=== PATIENT | female | born 1950 | race Caucasian/White ===

== ENCOUNTER 2016-08-16 08:46 | Inpatient (IN) | payer OTHER ==
--- NOTE | 2016-08-15 20:52 | HP ---
HISTORY AND PHYSICAL: DATE OF OFFICE VISIT: 08/15/16 DATE OF ADMISSION/SURGERY: 08/16/16 SURGEON: Sharlene Aceves MD PROCEDURE: Right total hip arthroplasty. CHIEF COMPLAINT: Right hip pain. HISTORY OF PRESENT ILLNESS: Ms. Carvalho is a 65-year-old female with complaints of right hip pain. She has failed conservative management and has elected to proceed with a right total hip arthroplasty, which is scheduled for 08/16/[address] Aceves. PAST MEDICAL HISTORY: 1. Hypertension. 2. Hypothyroidism. 3. Acid reflux. 4. High cholesterol. PAST SURGICAL HISTORY: 1. Left knee arthroplasty. 2. Left femur fracture surgery. 3. ORIF of the left ankle. 4. Cataract removal. 5. Ganglion cyst excision from the left wrist. 6. Jaw surgery. 7. Tubal ligation. 8. D and C. CURRENT MEDICATIONS: 1. [place]. 2. Omeprazole. 3. Lisinopril/hydrochlorothiazide. 4. Levothyroxine. 5. Multivitamin. 6. Potassium. 7. Bioflex. 8. Oxycodone. ALLERGIES: To AMOXICILLIN and ZITHROMAX. FAMILY HISTORY: Hypertension, thyroid disease, and heart disease. SOCIAL HISTORY: She is a 65-year-old female who lives with her . She does not smoke or use drugs. She is retired. She uses occasional alcohol. REVIEW OF SYSTEMS: A complete 14-point review of systems was reviewed with the patient. All was negative or noncontributory. She denies any anesthesia problems, history of a DVT, pulmonary embolism, hepatitis C, or HIV. PHYSICAL EXAMINATION GENERAL: She is well developed, well nourished, in no acute distress. VITAL SIGNS: She stands 5 feet 2 inches tall, weight 250 pounds, her blood pressure 141/78, and her heart rate is 74. HEENT: She is normocephalic, atraumatic. NECK: Supple. No palpable lymph nodes. Trachea is midline. PULMONARY: The lungs are clear to auscultation bilaterally. No wheezes, rhonchi, or rales. CARDIAC: Regular rate and rhythm. Strong S1, S2. No murmurs, gallops, or rubs. No peripheral edema. ABDOMEN: Soft, nontender, and nondistended. NEUROLOGICAL: She is alert and oriented x3. Cranial nerves II through XII are intact. MUSCULOSKELETAL: Right lower extremity: She walks with a slightly antalgic- type gait, favoring her right leg. Skin is intact. She has limited range of motion with internal and external rotation of her right hip. Her lower extremity muscle group strengths are intact at 5/5. She has 2+ dorsalis pedis pulses and intact sensation. ASSESSMENT AND PLAN: Ms. Carvalho is a 65-year-old female with complaints of right hip pain. She has elected to proceed with a right total hip arthroplasty , which is scheduled for 08/16/16. Coumadin, Colace, and Percocet were all sent to her pharmacy for DVT prophylaxis and pain control. Dr. Aceves discussed the risks and benefits of the surgery at today's visit and all of her questions were answered. Dr. Aceves would like to see her back in her clinic in 10 to 14 days after the surgery. MAL NEGRETE [id number]/[facility] #: [id number] MTDTanvi
[~2016-08-16 08:46] MED LIST: Buffered Lidocaine 1% SYR 3ML* 3 ML/SYR SYRINGE INTRADERM ONE; Famotidine IV* 10 MG/ML 2 ML (20 mg) IV ONE
[2016-08-16] MEDS ORDERED: Famotidine IV* 10 MG/ML 2 ML (20 mg) ONE (09:28)
[2016-08-16] MEDS ORDERED: Clindamycin 900 MG IVPREMIX(* 900 MG/50 ML SDV IV ONE (09:28)
[2016-08-16] MEDS ORDERED: Lidocaine 2% PF * 5 ML VIAL ONE (10:58)
[2016-08-16] MEDS ORDERED: Midazolam* 1 MG/ML 5 ML VIAL (5 MG) ONE (10:58)
[2016-08-16] MEDS ORDERED: Propofol* 10 MG/ML 20 ML BTL IV PUSH ONE (10:58)
[2016-08-16] MEDS ORDERED: Ketorolac INJ* 30 MG/ML 1 ML VIAL ONE (10:58)
[2016-08-16] MEDS ORDERED: fentaNYL* 50 MCG/ML 5 ML VIAL (250 MCG VIAL) ONE (10:58)
[2016-08-16] MEDS ORDERED: Cisatracurium* 2 MG/ML MDV 10 ML ONE (10:58)
[2016-08-16] MEDS ORDERED: Ondansetron INJ* 2 MG/ML VIAL ONE (10:58)
[2016-08-16] MEDS ORDERED: Dexamethasone IV* 4 MG/ML 1 ML (4 MG) ONE (10:58)
[2016-08-16] MEDS ORDERED: KETAMINE HCL* 50 MG/ML 10 ML VIAL ONE (10:58)
[2016-08-16] MEDS ORDERED: EPHEDrine (Pressors)* 50 MG/ML VIAL ONE (12:55)
[2016-08-16] MEDS ORDERED: HYDROmorphone INJ* 1 MG/ML CARPUJECT SYRINGE IV PRN (13:01)
[2016-08-16] MEDS ORDERED: Ondansetron INJ* 2 MG/ML VIAL IV PRN ×2 (13:01→14:10)
[2016-08-16] MEDS ORDERED: fentaNYL* 50 MCG/ML 2 ML VIAL (100 MCG VIAL) ONE ×3 (13:21→15:10)
[2016-08-16] MEDS ORDERED: Phenylephrine INJ* 10 MG/ML 1 ML VIAL (10 MG) ONE (13:46)
[2016-08-16] MEDS ORDERED: oxyCODONE/Acetamin 5/325 MG* TAB PO PRN (14:10)
[2016-08-16] MEDS ORDERED: diPHENhydraMINE IV* 50 MG/ML 1 ml VIAL (BENADRYL) IV PRN (14:10)
[2016-08-16] MEDS ORDERED: Bisacodyl SUPP* 10 MG SUPP PR PRN (14:10)
[2016-08-16] MEDS ORDERED: Ondansetron TAB* 4 MG PO PRN (14:10)
[2016-08-16] MEDS ORDERED: Polyethylene Glycol 3350* 17 GM PACKET PO PRN (14:10)
[2016-08-16] MEDS ORDERED: Acetaminophen TAB* 325 MG PO PRN (14:10)
[2016-08-16] MEDS ORDERED: Bupivacaine 0.5% SDV PF* 30 ML VIAL ONE (14:12)
[2016-08-16] MEDS ORDERED: HYDROmorphone INJ* 1 MG/ML CARPUJECT SYRINGE ONE ×2 (14:26→15:10)
[2016-08-16] MEDS: fentaNYL* 50 MCG/ML 2 ML VIAL (100 MCG VIAL) IV PRN ×2 (15:12→15:19)
[2016-08-16] MEDS ORDERED: Acetaminophen IV 1GM/100ML * 100 ML ONE (15:44)
--- NOTE | 2016-08-16 15:47 | RAD ---
HISTORY: Right hip replacement COMPARISONS: August 16, 2016 VIEWS: 1, frontal view of the pelvis at 1:50 PM FINDINGS: BONE DENSITY: Normal. BONES: The patient is right hip arthroplasty. There is a temporary femoral size and prominent JOINTS: There is no arthropathy. ALIGNMENT: There is no dislocation. SOFT TISSUES: Unremarkable. OTHER FINDINGS: None. IMPRESSION: LIMITED SINGLE VIEW OF THE PELVIS DURING HIP ARTHROPLASTY
--- NOTE | 2016-08-16 15:48 | RAD ---
HISTORY: Status post right total hip arthroplasty COMPARISONS: August 16, 2016 VIEWS: 1, frontal view the pelvis FINDINGS: BONE DENSITY: Normal. BONES: The patient is status post right hip arthroplasty . There is presumably remote posttraumatic change left femur JOINTS: The patient is status post right hip arthroplasty ALIGNMENT: There is no dislocation. SOFT TISSUES: Unremarkable. OTHER FINDINGS: None. IMPRESSION: STATUS POST RIGHT HIP ARTHROPLASTY
--- NOTE | 2016-08-16 15:48 | RAD ---
HISTORY: Status post right hip arthroplasty COMPARISONS: June 27, 2016 VIEWS: 2, frontal and crosstable lateral views of the right hip FINDINGS: BONE DENSITY: Normal. BONES: The patient is status post right hip arthroplasty. There is no hardware failure or osteolysis. JOINTS: The patient is status post right hip arthroplasty ALIGNMENT: There is no dislocation. SOFT TISSUES: Unremarkable. OTHER FINDINGS: None. IMPRESSION: STATUS POST RIGHT HIP ARTHROPLASTY
[2016-08-16] MEDS ORDERED: Warfarin TAB(*) 6 MG PO ONE (18:00)
[2016-08-16] MEDS ORDERED: Clindamycin 600 MG IVPREMIX(* 600 MG/50 ML SDV IV SCH (18:00)
[2016-08-16] MEDS: Atorvastatin* 10 MG TAB PO SCH (18:01)
[2016-08-16] MEDS: oxyCODONE/Acetamin 5/325 MG* TAB PO PRN (20:33)
[2016-08-16] MEDS: Magnesium Hydroxide LIQ* 30 ML UDC PO SCH (21:01)
[2016-08-16] MEDS: Clindamycin 600 MG IVPREMIX(* 600 MG/50 ML SDV IV SCH (21:01)
[2016-08-16] MEDS: POTASSIUM GLUCONATE 595 MG PO SCH (21:01)
[2016-08-16] MEDS: Docusate CAP* 100 MG PO SCH (21:01)
[2016-08-17] MEDS: oxyCODONE/Acetamin 5/325 MG* TAB PO PRN ×5 (00:28→19:59)
[2016-08-17] MEDS: Morphine INJ* 4 MG/ML 1 ML CARPUJECT IV PRN ×2 (03:28→21:24)
[2016-08-17] MEDS: Clindamycin 600 MG IVPREMIX(* 600 MG/50 ML SDV IV SCH ×2 (03:29→11:22)
[2016-08-17] MEDS: Levothyroxine TAB* 125 MCG TAB PO SCH (06:15)
[2016-08-17 07:05] LABS: Hematocrit 27 % (35-47); Hemoglobin 9.2 g/dl (12.0-16.0)
[2016-08-17 07:29] LABS: BUN/Creatinine Ratio 17.3 (8-20); Calcium 8.4 mg/dL (8.6-10.3); EGFR African American 91.6 (>60); EGFR Non-African American 71.2 (>60); Potassium 4.2 mmol/L (3.5-5.0)
[2016-08-17] MEDS: POTASSIUM GLUCONATE 595 MG PO SCH ×2 (07:56→20:23)
[2016-08-17] MEDS: Lisinopril TAB* 10 MG PO SCH (08:00)
[2016-08-17] MEDS: Vitamin THERAPEUTIC TAB PO SCH (08:00)
[2016-08-17] MEDS: Hydrochlorothiazide TAB* 25 MG PO SCH (08:00)
[2016-08-17] MEDS: Venlafaxine EXT RELEASE CAP* 75 MG PO SCH (08:00)
[2016-08-17] MEDS: Omeprazole CAP* 20 MG PO SCH (08:00)
[2016-08-17] MEDS: Magnesium Hydroxide LIQ* 30 ML UDC PO SCH ×2 (08:00→20:25)
[2016-08-17] MEDS: Docusate CAP* 100 MG PO SCH ×2 (08:00→20:25)
[2016-08-17] MEDS ORDERED: Lisinopril/HCTZ 20/25(NF) TAB PO SCH (09:00)
--- NOTE | 2016-08-17 09:01 | OP ---
DATE OF OPERATION: 08/16/16 - ROOM #350 DATE OF : 52 SURGEON: Sharlene Aceves MD GUARD ENTRANCE REGISTRAR: MAL Yung ANESTHESIOLOGIST: Dr. Dwyer. ANESTHESIA: General. PRE-OP DIAGNOSIS: Severe end-stage degenerative osteoarthritis of the right hip joint. POST-OP DIAGNOSIS: Severe end-stage degenerative osteoarthritis of the right hip joint. OPERATIVE PROCEDURE: Right total hip arthroplasty. Please add a modifier for morbid obesity, adding at least 45 to 60 minutes onto the case. HARDWARE USED: This is uncemented [place] total hip hardware. For the acetabulum, a size 50D Tritanium cluster hole shell. A 32D 0-degree polyethylene insert Trident X3 was used. For the femur, an Accolade TMZF size 1 with a 127-degree neck. For the head a Biolox delta ceramic V40 femoral head 32 +0. COMPLICATIONS: None. ESTIMATED BLOOD LOSS: 350 cc. SPECIMENS: Femoral head and acetabular reaming sent to pathology. BRIEF HISTORY/INDICATIONS: Ms. Carvalho is a 65-year-old female with severe end- stage arthritis of the right hip joint. She failed conservative treatment with antiinflammatories, pain medication, activity modification, and physical therapy. She elected to undergo a right total hip arthroplasty. Radiographs showed severe [id number] arthritis. Informed consent was obtained from the patient. She understood the risks of the procedure included but were not limited to bleeding, infection, damage to nearby structures, continued pain, need for further surgery, intraoperative fracture, nerve palsy, hardware failure or loosening, leg length discrepancy, dislocation, stroke, heart attack , blood clot and . She wished to proceed. INTRAOPERATIVE FINDINGS: Intraoperatively, there was at least 10 cm subcutaneous fat layer. The patient's morbid obesity and body habitus added at least 45 to 60 minutes to the case. Retraction and presentation throughout the case was made more difficult. The patient was noted to have significant osteophyte formation along the anterior acetabulum and femoral head/neck junction. She had complete loss of cartilage along the femoral head and acetabulum. DESCRIPTION OF PROCEDURE: Ms. Carvalho was identified in the preanesthesia unit. Her right lower extremity was marked as the correct operative site. Informed consent was signed and placed in the chart. The patient was taken to the operating room and placed under general anesthesia. A Faye catheter was placed. The patient was placed in the left lateral decubitus position on the peg board. All bony prominences were well padded. Right lower extremity was prepped and draped in the usual sterile fashion. Preop time-out was made to correctly identify the patient side and site. Appropriate perioperative antibiotics were given within 1 hour of incision. A 15-cm posterior hip incision was made with a 10 blade. Electrocautery was used to dissect down through the subcutaneous fat layer to the lateral fascia layer. There was 10 cm or more of subcutaneous fat due to the patient's morbid obesity. A new 10 blade was used to incise the fascia layer in line with the skin incision. Charnley retractor was placed, and the posterior aspect of the hip joint was visualized. Piriformis and conjoint tendons were identified. These were elevated off the posterolateral femur using electrocautery and tagged with two #5 Ethibonds. Next, electrocautery was used to make a standard posterolateral capsular flap. This was also tagged with two #5 Ethibonds. The hip was carefully dislocated. Even dislocation of the hip was made more difficult by the body habitus. Lesser trochanter to the center of the femoral head measured at approximately 48 mm. Oscillating saw was used to make the appropriate femoral neck cut. The femoral head was sent to pathology and the femur was retracted anteriorly. After appropriate placement of retractors, the acetabulum was visualized. Preparation of the acetabulum for reaming was made more difficult by the patient 's body habitus. Long-handled knife was used to sharply remove the remaining labrum around the acetabular rim. The acetabulum was sequentially reamed up to a size 49. There was a good bleeding bone bed. The 49 trial had good fit, abduction angle and anteversion. A Tritanium cluster hole shell 50D was chosen. This was impacted into the acetabulum without difficulty. There was excellent stability. A 32D 0-degree Polyethylene insert Trident X3 liner was chosen. This was impacted into the acetabulum without difficulty. Stability of the liner was checked and rechecked, and noted to be stable. Next, attention was turned to preparation of the proximal femur. Placement of retractors was made more difficult by the patient's body habitus. Box cut osteotome and canal finder were used to enter the proximal femur. The proximal femur was sequentially broached up to a size #1. A 127 neck trial was chosen as well as a 32 +0 head trial. The hip was taken through range of motion and noted to be stable in all positions. There was good soft tissue tension and leg length. Lesser troch to center of the femoral head measured approximately 48 mm. All trials were carefully removed. Final implant was an Accolade TMZF size #1 with a 127 degree neck. This was impacted into the femoral canal without difficulty. A 32 +0 ceramic Biolox delta V40 femoral head was chosen as the final implant. This was impacted onto the femoral neck without difficulty. The hip was reduced and taken through a range of motion. There was good soft tissue tension and appropriate leg length. The hip was stable in all positions. The hip was copiously irrigated with sterile saline. Previously tagged capsule and tendons were reapproximated to the posterolateral femur through two trochanteric drill holes. Hip was once again copiously irrigated. The lateral fascia layer was closed using interrupted #1 Vicryls. The rest of the incision was closed in a layered fashion using 0 and 2-0 Vicryls. The skin was closed using running 3-0 Monocryl suture and Dermabond. Sterile 4x4's, Adaptic, and paper tape were placed over this. The patient's anesthesia was reversed without difficulty. She was taken to the PACU in stable condition. Intended weightbearing will be weightbearing as tolerated. Intended DVT prophylaxis will be Coumadin with a Lovenox bridge. [id number]/[facility] #: [id number] MTDD
--- NOTE | 2016-08-17 12:34 | PN ---
Progress Note - Progress Note SOAP: Subjective: [65 y/o female s/o RIGHT ALEX 08/16/2016. Patient reports pain under control, ambulatory this AM. Concerned about D/C home vs placement. ] Objective: [General- Well appearing, NAD, sitting in chair comfortably MSK- Incision intact, no drainage noted, minimal swelling R thigh. + dorsi/ plantarflexion b/l LE's, neg homans sign b/l. Vital Signs Temp 98.0 F 08/17/16 11:50 Pulse 91 08/17/16 11:50 Resp 16 08/17/16 11:50 BP 122/42 08/17/16 11:50 Pulse Ox 98 08/17/16 11:50 Intake & Output 08/16/16 08/17/16 08/17/16 18:59 06:59 18:59 Intake Total 3710 1640 440 Output Total 350 1475 1800 Balance 3360 165 -1360 Weight 241 lb Intake: IV Fluids 3000 990 LR 3000 990 IVPB 50 Clindamycin 50 Oral 710 600 440 Output: Faye 100 1475 1800 Estimated Blood Loss 250 Laboratory Results - last 24 hr 08/17/16 08/17/16 08/17/16 06:36 06:36 06:36 Hgb 9.2 L Hct 27 L INR (Anticoag Therapy) 0.98 Sodium Potassium Chloride Carbon Dioxide Anion Gap BUN Creatinine Est GFR ( Amer) Est GFR (Non-Af Amer) BUN/Creatinine Ratio Glucose Calcium Hepatitis C Antibody Nonreactive 08/17/16 06:36 Hgb Hct INR (Anticoag Therapy) Sodium 129 L Potassium 4.2 Chloride 97 L Carbon Dioxide 27 Anion Gap 5 BUN 14 Creatinine 0.81 Est GFR ( Amer) 91.6 Est GFR (Non-Af Amer) 71.2 BUN/Creatinine Ratio 17.3 Glucose 138 H Calcium 8.4 L Hepatitis C Antibody ] Assessment: [65 y/o female s/o RIGHT ALEX 08/16/2016.] Plan: [- DVT prophy- continue lovenox, coumadin dosing 6mg tonight - Continue PT/ OT - Continue pain regimen ] Active Medications Generic Name Dose Route Start Last Admin Trade Name Freq PRN Reason Stop Dose Admin Acetaminophen 650 mg 08/16/16 14:10 Tylenol Tab* PO Q4H PRN pain, fever Atorvastatin Calcium 10 mg 08/16/16 18:00 08/16/16 18:01 Lipitor* PO 10 mg QPM JUAN Administration Bisacodyl 10 mg 08/16/16 14:10 Dulcolax Supp* OK DAILY PRN constipation Diphenhydramine HCl 12.5 mg 08/16/16 14:10 Benadryl Iv* IV Q6H PRN PRURITIS Docusate Sodium 100 mg 08/16/16 21:00 08/17/16 08:00 Colace Cap* PO 100 mg BID JUAN Administration Enoxaparin Sodium 40 mg 08/17/16 15:00 Lovenox(*) SUBCUT Q24H JUAN Hydrochlorothiazide 50 mg 08/17/16 09:00 08/17/16 08:00 Hydrodiuril Tab* PO 50 mg DAILY JUAN Administration Lactated Ringer's 1,000 mls @ 100 mls/hr 08/16/16 15:00 08/17/16 03:23 Lactated Ringers 1000 Ml Bag* IV 100 mls/hr PER RATE JUAN Administration Lactulose 30 ml 08/16/16 14:10 Lactulose* PO Q6H PRN constipation Levothyroxine Sodium 125 mcg 08/17/16 06:00 08/17/16 06:15 Synthroid Tab* PO 125 mcg DAILY@0600 JUAN Administration Lisinopril 40 mg 08/17/16 09:00 08/17/16 08:00 Prinivil Tab* PO 40 mg DAILY JUAN Administration Magnesium Hydroxide 30 ml 08/16/16 21:00 08/17/16 08:00 Milk Of Magnesia Liq* PO 30 ml BID JUAN Administration Morphine Sulfate 4 mg 08/16/16 14:10 08/17/16 03:28 Morphine Inj (Syringe)* IV 4 mg Q2H PRN Administration breakthrough pain Multivitamins 1 tab 08/17/16 09:00 08/17/16 08:00 Theragran Tab* PO 1 tab DAILY JUAN Administration Potassium Gluconate 595 mg 08/16/16 21:00 08/17/16 07:56 [Potassium Gluconate PO Not Given Er] 595 Mg BID JUAN Omeprazole 40 mg 08/17/16 07:30 08/17/16 08:00 Prilosec Cap* PO 40 mg DAILY@0730 JUAN Administration Ondansetron HCl 4 mg 08/16/16 14:10 Zofran Inj* IV Q6H PRN nausea Ondansetron HCl 4 mg 08/16/16 14:10 Zofran Tab* PO Q6H PRN NAUSEA Oxycodone/Acetaminophen 1 tab 08/16/16 14:10 Percocet 5/325 Tab* PO Q4H PRN mild pain Oxycodone/Acetaminophen 2 tab 08/16/16 14:10 08/17/16 10:40 Percocet 5/325 Tab* PO 2 tab Q4H PRN Administration moderate pain Pharmacy Profile Note 1 note 08/17/16 17:00 Coumadin Daily Reminder* FOLLOW UP 1700 [facility] Polyethylene Glycol/Electrolytes 17 gm 08/16/16 14:10 Miralax* PO DAILY PRN Constipation Venlafaxine HCl 150 mg 08/17/16 09:00 08/17/16 08:00 Effexor Xr Cap* PO 150 mg QAM JUAN Administration Warfarin Sodium 6 mg 08/17/16 17:00 Coumadin Tab(*) PO 08/17/16 17:01 ONCE@1700 [facility] Protocol
[2016-08-17] MEDS: Enoxaparin(*) 40 MG/0.4 ML SYR SUBCUT SCH (14:58)
[2016-08-17] MEDS ORDERED: Warfarin TAB(*) 6 MG PO SCH (17:00)
[2016-08-17] MEDS: Atorvastatin* 10 MG TAB PO SCH (18:06)
[2016-08-18] MEDS: oxyCODONE/Acetamin 5/325 MG* TAB PO PRN ×5 (00:20→21:19)
[2016-08-18] MEDS: Levothyroxine TAB* 125 MCG TAB PO SCH (05:58)
[2016-08-18 07:33] LABS: Hematocrit 28 % (35-47); Hemoglobin 9.3 g/dl (12.0-16.0)
[2016-08-18] MEDS: Venlafaxine EXT RELEASE CAP* 75 MG PO SCH (08:03)
[2016-08-18] MEDS: Magnesium Hydroxide LIQ* 30 ML UDC PO SCH ×2 (08:03→21:19)
[2016-08-18] MEDS: Docusate CAP* 100 MG PO SCH ×2 (08:04→21:19)
[2016-08-18] MEDS: Lisinopril TAB* 10 MG PO SCH (08:04)
[2016-08-18] MEDS: Hydrochlorothiazide TAB* 25 MG PO SCH (08:04)
[2016-08-18] MEDS: Omeprazole CAP* 20 MG PO SCH (08:04)
[2016-08-18] MEDS: Vitamin THERAPEUTIC TAB PO SCH (08:04)
[2016-08-18] MEDS: POTASSIUM GLUCONATE 595 MG PO SCH ×2 (08:05→21:22)
--- NOTE | 2016-08-18 10:20 | PN ---
Progress Note - Progress Note SOAP: Subjective: Pt. reports she is doing well, pain is controlled. Objective: RLE - dressing changed, inc c/d/i. distally nvi. Vital Signs: Temp Pulse Resp BP Pulse Ox 98.2 F 93 18 114/54 92 08/18/16 03:22 08/18/16 03:22 08/18/16 10:04 08/18/16 03:22 08/18/16 08:00 Laboratory Results - last 24 hr 08/17/16 08/18/16 08/18/16 06:36 07:01 07:01 Hgb 9.3 L Hct 28 L INR (Anticoag Therapy) 1.14 H Hepatitis C Antibody Nonreactive Assessment: 65 yo F pod 2 s/p RTHA Plan: wbat with post hip precautions 8 mg coumadin tonight with lovenox bridge plan d/c to home in am
[2016-08-18] MEDS: Enoxaparin(*) 40 MG/0.4 ML SYR SUBCUT SCH (15:03)
[2016-08-18] MEDS ORDERED: Warfarin TAB(*) 6 MG PO ONE (17:30)
[2016-08-18] MEDS: Atorvastatin* 10 MG TAB PO SCH (17:46)
[2016-08-19] MEDS: oxyCODONE/Acetamin 5/325 MG* TAB PO PRN ×2 (03:43→07:48)
[2016-08-19] MEDS: Levothyroxine TAB* 125 MCG TAB PO SCH (05:28)
[2016-08-19] MEDS: POTASSIUM GLUCONATE 595 MG PO SCH (07:43)
[2016-08-19] MEDS: Omeprazole CAP* 20 MG PO SCH (07:43)
[2016-08-19] MEDS: Magnesium Hydroxide LIQ* 30 ML UDC PO SCH (07:47)
[2016-08-19] MEDS: Venlafaxine EXT RELEASE CAP* 75 MG PO SCH (07:48)
[2016-08-19] MEDS: Hydrochlorothiazide TAB* 25 MG PO SCH (07:48)
[2016-08-19] MEDS: Docusate CAP* 100 MG PO SCH (07:48)
[2016-08-19] MEDS: Lisinopril TAB* 10 MG PO SCH (07:48)
[2016-08-19] MEDS: Vitamin THERAPEUTIC TAB PO SCH (07:49)
[2016-08-19 08:15] LABS: Hematocrit 29 % (35-47); Hemoglobin 9.7 g/dl (12.0-16.0)
--- NOTE | 2016-08-19 10:04 | PN ---
Progress Note - Progress Note SOAP: Subjective: [Pt. reports doing well. Pain managed with po meds. Denies CP/SOB/calf pain. Feels ready to go home.] Objective: [A and O x 3, NAD R hip dressing C/D/I. Distal NV function and gross motor intact Vital Signs: Temp Pulse Resp BP Pulse Ox 98.3 F 88 16 108/46 96 08/19/16 03:42 08/19/16 03:42 08/19/16 07:48 08/19/16 03:42 08/19/16 03:42 Laboratory Results - last 24 hr 08/19/16 08/19/16 07:54 07:54 Hgb 9.7 L Hct 29 L INR (Anticoag Therapy) 1.25 H ] Assessment: [s/p R ALEX POD #3] Plan: [D/C pt home with services WBAT R LE - post hip precautions Coumadin 8 mg today Percocet for pain Colace for constipation F/U with Dr. Aceves in 2 weeks]
[2016-08-19 10:18] VITALS: BP 124/56
--- NOTE | 2016-08-19 23:15 | DS ---
DISCHARGE SUMMARY: DATE OF ADMISSION: 08/16/16 DATE OF DISCHARGE: 08/19/16 PROVIDER: Sharlene Aceves MD ADMITTING PHYSICIAN: Sharlene Aceves MD ADMITTING DIAGNOSES: 1. Right hip osteoarthritis. 2. Hypertension. 3. Hypothyroidism. 4. Hypercholesterolemia. DISCHARGE DIAGNOSES: 1. Status post right total hip arthroplasty. 2. Hypertension. 3. Hypothyroidism. 4. High cholesterol. PROCEDURE: Right total hip arthroplasty. CONSULTANTS: Physical Therapy and Occupational Therapy. BRIEF HISTORY: Ms. Carvalho is a 65-year-old female with severe degenerative osteoarthritis of her right hip. She failed conservative treatment measures and elected to undergo a right total hip arthroplasty on 08/16/[address] Aceves. HOSPITAL COURSE: Ms. Carvalho was admitted to [facility] on 08/16/16. She underwent an uncomplicated right total hip arthroplasty. Postoperatively, she recovered on the short-stay surgical unit. The Faye catheter was removed on postoperative day 1 and she was able to urinate on her own. Postoperative day 2, she was able to have a bowel movement. She advanced to a regular diet without difficulty. Her pain was well controlled with Percocet. She was restarted on home medications. The vital signs and labs remained stable. She was able to bear weight as tolerated on the right lower extremity. She advanced appropriately with physical therapy and occupational therapy. Her DVT prophylaxis was bridged with Lovenox and Coumadin until she reached therapeutic INR range. By postoperative day 3, she was orthopedically and medically stable for discharge home with services. PHYSICAL EXAMINATION: General: On examination, the patient is noted to be calm and cooperative, in no acute distress. She is alert and oriented x3. Vital signs on day of discharge: Temperature 98.3 degrees Fahrenheit, pulse 88 , O2 sat on room air 96%, blood pressure 108/46. Extremities: Examination of her right lower extremity demonstrates dressing over the right hip, which is clean, dry, and intact. The thigh is mildly swollen, but compressible. Distally, she has +2 palpable dorsalis pedis pulse, 5/5 ankle dorsiflexion and plantar flexion and strength. Sensation is intact to light touch. DIAGNOSTIC STUDIES/LAB DATA: On day of discharge, hemoglobin 9.7, hematocrit 29. INR 1.25. Radiographs: Postoperative radiographs of the right hip demonstrate a right total hip arthroplasty with satisfactory prosthesis placement and no acute bony abnormalities. DISCHARGE MEDICATIONS: 1. Omeprazole. 2. Lisinopril and hydrochlorothiazide. 3. Levothyroxine. 4. Multivitamin. 5. Potassium. 6. BioFlex. 7. Percocet 5/325 one to two tabs q.4 to 6 hours p.r.n. pain. 8. Coumadin 2 mg tablet, use as directed. The patient will take 8 mg on Saturday , day of discharge. 9. Colace 100 mg p.o. t.i.d. p.r.n. constipation. CONDITION ON DISCHARGE: Stable. DISCHARGE INSTRUCTIONS: Ms. Carvalho is a 65-year-old female, postoperative day #3 status post right total hip arthroplasty which was uncomplicated. She is orthopedically and medically stable to be discharged to home with services. She has stable vital signs and labs. She will restart home medications. She will take 8 mg of Coumadin, Saturday night, and have her INR rechecked on Saturday. She will have INR draws on Mondays and with visiting nurse services. She will remain weightbearing as tolerated on the right lower extremity and observe posterior hip precautions. She will have home physical therapy twice a day. She will take Percocet for pain control and Colace up to 3 times a day for constipation. She will follow up with Dr. Aceves in 10 to 14 days for incision check and suture removal. She was instructed to call Dr. Aceves or go immediately to the ER should she develop any new fever, chills or incision pain, redness, or drainage. She was instructed to go immediately to the ER should she develop chest pain or shortness of breath. MAL MANSFIELD [id number]/[facility] #: [id number] RALPH
== END 2016-08-19 10:50 | disposition home health service (06) | DRG 470 ==
LOC: AA 08:46 → SSU 17:12
PROVIDERS: ADMIT Orthopaedic Surgery Adult Reconstructive Orthopaedic Surgery; ATTEND Orthopaedic Surgery Adult Reconstructive Orthopaedic Surgery
PROC: 0SR902A Replacement of Right Hip Joint with Metal on Polyethylene Synthetic Substitute, Uncemented, Open Approach (ICD-10-PCS; principal; 2016-08-16 12:00)
DX: M16.11 Unilateral primary osteoarthritis, right hip (principal); Z68.41 Body mass index [BMI] 40.0-44.9, adult; I10 Essential (primary) hypertension; E03.9 Hypothyroidism, unspecified; K21.9 Gastro-esophageal reflux disease without esophagitis; E78.5 Hyperlipidemia, unspecified; Z96.652 Presence of left artificial knee joint; K59.00 Constipation, unspecified; E66.01 Morbid (severe) obesity due to excess calories; M25.751 Osteophyte, right hip; E78.00 Pure hypercholesterolemia, unspecified; Z98.49 Cataract extraction status, unspecified eye; Z98.51 Tubal ligation status; Z88.1 Allergy status to other antibiotic agents; Z82.49 Family history of ischemic heart disease and other diseases of the circulatory system; Z83.49 Family history of other endocrine, nutritional and metabolic diseases
CPT/HCPCS: 36415; 72170; 80048; 85014; 85018; 85610; 86803; 88304; 88311; 94760; A9270-GY; C1776; J1100; J1170; J1650; J1885; J2250; J2270; J2405; J2704; J3010

== ENCOUNTER 2019-04-17 06:58 | Day surgery (SDC) | payer MEDICARE, OTHER ==
[~2019-04-17 06:58] MED LIST changes: -Buffered Lidocaine 1% SYR 3ML* 3 ML/SYR SYRINGE INTRADERM ONE; +Buffered Lidocaine 1% SYRIN* 1 ML/SYRINGE INTRADERM ONE; +Dexamethasone IV* 4 MG/ML 1 ML (4 MG) IV SLOW PU ONE; +Dexamethasone IV* 4 MG/ML 1 ML (4 MG) ONE; -Famotidine IV* 10 MG/ML 2 ML (20 mg) IV ONE; +Lactated Ringers 1000 ML Bag* 1,000 ML IV SCH
[2019-04-17] MEDS ORDERED: Clindamycin 900 MG/D5W BAG(*) 900 MG/50 ML BAG IVPB ONE (07:13)
[2019-04-17] MEDS ORDERED: Atracurium* 10 MG/ML 10 ML VIAL ONE (08:16)
[2019-04-17] MEDS ORDERED: fentaNYL* 50 MCG/ML 5 ML VIAL (250 MCG VIAL) ONE (08:16)
[2019-04-17] MEDS ORDERED: Midazolam* 1 MG/ML 2 ML VIAL (2 MG) ONE (08:16)
[2019-04-17] MEDS ORDERED: Propofol* 10 MG/ML 20 ML BTL ONE (08:18)
[2019-04-17] MEDS ORDERED: Ketorolac INJ* 30 MG/ML 1 ML VIAL ONE (08:18)
[2019-04-17] MEDS ORDERED: Ondansetron INJ* 2 MG/ML VIAL ONE (08:18)
[2019-04-17] MEDS ORDERED: EPHEDrine (Pressors)* 50 MG/ML VIAL ONE (08:18)
[2019-04-17] MEDS ORDERED: Lidocaine 2% PF * 5 ML VIAL ONE (08:18)
[2019-04-17] MEDS ORDERED: Triamcinolone Acetonide* 40 MG/ML 1 ML VIAL ONE (08:21)
[2019-04-17] MEDS ORDERED: Bupivacaine 0.5% SDV PF* 30ML VIAL ONE (08:21)
[2019-04-17] MEDS ORDERED: Lidocaine 1% MPF ** 5 ML VIAL ONE (08:21)
[2019-04-17] MEDS ORDERED: Phenylephrine 40 MCG/ML SYRINGE ONE (08:25)
[2019-04-17] MEDS ORDERED: DiMENhydriNATE IV* 50 MG/ML VIAL IV PUSH PRN (08:44)
[2019-04-17] MEDS ORDERED: oxyCODONE/Acetamin 5/325 MG* TAB PO PRN (08:44)
[2019-04-17] MEDS ORDERED: Naloxone* 0.4 MG/ML 1 ML VIAL IV PRN (08:44)
[2019-04-17] MEDS ORDERED: fentaNYL* 50 MCG/ML 2 ML VIAL (100 MCG VIAL) IV PRN (08:44)
[2019-04-17] MEDS ORDERED: Ondansetron INJ* 2 MG/ML VIAL IV PRN (08:44)
--- NOTE | 2019-04-17 08:56 | OP ---
Operative Report - Blank - Operative Report Date of Operation: 04/17/19 Note: PATIENT: Kira Carvalho DATE OF : 1950 DATE OF SURGERY: 04/17/2019 SURGEON: Wesley Beebe MD [employer] BLASTING: MAL Tucker, whos assistance was necessary for positioning, retraction, help with instrumentation, and closure. ANESTHESIOLOGIST: Dr. Huff PREOPERATIVE DIAGNOSIS: Left ankle painful retained hardware. Left ankle posttraumatic arthritis. POSTOPERATIVE DIAGNOSIS: Left ankle painful retained hardware. Left ankle posttraumatic arthritis. OPERATION: 1. Left ankle, removal of implants, deep. 2. Left ankle corticosteroid injection under fluoroscopic guidance. ANESTHESIA: LMA IMPLANTS: none TOURNIQUET TIME: Less than 1 hour with a well-padded thigh tourniquet at 250 mmHg SPECIMENS: none ESTIMATED BLOOD LOSS: minimal COMPLICATIONS: none STATUS: Stable from the operating room to the recovery room and then home. INDICATIONS FOR PROCEDURE: Kira had a prior left ankle fracture status post ORIF. She has pain from the hardware, as well as from posttraumatic ankle arthritis. Both operative and non operative treatment alternatives were reviewed. Further, the nature and risks of surgery were reviewed in careful detail, in the office as well as the pre-operative holding area. Our discussions regarding the risks of surgery included, but were not limited to, infection, wound problems, nerve injury, neuroma, RSD, persistent symptoms, blood clot, fracture, need for further surgery, failure of the surgery, and even the remote chance of catastrophic complication. DESCRIPTION OF PROCEDURE: The patient was seen in the preoperative holding unit and informed written consent was obtained. The appropriate extremity was marked. The patient was then brought to the operating room and carefully positioned on the operating room table. Anesthesia was induced. All bony prominences were padded with great care. A well-padded thigh tourniquet was placed. A chlorhexidine based pre- scrub was performed followed by a chloraprep prep and drape in standard sterile fashion. A surgical safety pause was then conducted in which we confirmed the appropriate patient, extremity, planned procedure, availability of equipment, indication and administration of prophylactic antibiotics, and DVT prophylaxis in the form of a compression boot on the non-surgical extremity. We began by performing an Esmarch exsanguination of the limb, and inflated the tourniquet. I injected local anesthetic to the area of the prior surgical incision. I utilized the prior lateral ankle incision. I utilized blunt dissection down to the level of the hardware. I then utilized a scalpel to sharply expose the screw heads. I then removed the screws utilizing a screwdriver without difficulty. The screws came out in their entirety. I then removed the plate. Fluoroscopic images were obtained demonstrating removal of the hardware. I then used fluoroscopic guidance to perform a left tibiotalar joint injection. 40 mg of Kenalog and 3 cc of 1% lidocaine were attached to a 22-gauge needle. A standard anteromedial ankle injection approach was used. Fluoroscopy was used to confirm placement of the needle in the tibiotalar joint. The contents of the syringe were injected easily, and without resistance to flow. At this point, we irrigated copiously and then closed the wound in layers meticulously utilizing 3-0 Monocryl and 3-0 nylon for the skin. A sterile dressing was then applied. The patient was then awakened from anesthesia and transferred to the recovery room in stable condition. There were no complications. All needle and sponge counts were correct at the end of the case. ATTESTATION: I attest I was present and scrubbed and performed the critical portions of the procedure myself. POSTOPERATIVE PLAN: The plan is to remove the sutures in 2 weeks.
[2019-04-17 10:16] VITALS: BP 136/70
== END 2019-04-17 10:03 | disposition home or self-care (01) ==
LOC: OREAST 06:58
PROVIDERS: ATTEND Orthopaedic Surgery
DX: T84.84XA Pain due to internal orthopedic prosthetic devices, implants and grafts, initial encounter (principal); Y83.1 Surgical operation with implant of artificial internal device as the cause of abnormal reaction of the patient, or of later complication, without mention of misadventure at the time of the procedure; M19.172 Post-traumatic osteoarthritis, left ankle and foot; S82.892S Other fracture of left lower leg, sequela; X58.XXXS Exposure to other specified factors, sequela; Y92.9 Unspecified place or not applicable; I10 Essential (primary) hypertension; R01.1 Cardiac murmur, unspecified; K21.9 Gastro-esophageal reflux disease without esophagitis; E03.9 Hypothyroidism, unspecified
CPT/HCPCS: 76000; 88300; J1100; J1885; J2250; J2405; J2704; J3010; J3301; J3490

== ENCOUNTER → 2019-05-07 | Day surgery (SDC) | payer MEDICARE, OTHER ==
[~2019-05-07] MED LIST changes: +Acetaminophen TAB* 325 MG PO PRN; -Dexamethasone IV* 4 MG/ML 1 ML (4 MG) IV SLOW PU ONE; +DiMENhydriNATE IV* 50 MG/ML VIAL IV PUSH PRN; +DiMENhydriNATE IV* 50 MG/ML VIAL ONE; +Famotidine IV* 10 MG/ML 2 ML (20 mg) IV ONE; +Famotidine IV* 10 MG/ML 2 ML (20 mg) ONE; +Ketorolac INJ* 30 MG/ML 1 ML VIAL ONE; +Lidocaine 2% PF * 5 ML VIAL ONE; +Midazolam* 1 MG/ML 5 ML VIAL (5 MG) ONE; +Naloxone* 0.4 MG/ML 1 ML VIAL IV PRN; +Ondansetron INJ* 2 MG/ML VIAL ONE; +Propofol* 10 MG/ML 20 ML BTL ONE; +fentaNYL* 50 MCG/ML 2 ML VIAL (100 MCG VIAL) ONE; +oxyCODONE TAB* 5 MG TAB ONE; +oxyCODONE TAB* 5 MG TAB PO PRN
[2019-05-07 12:01] VITALS: BP 160/93
--- NOTE | 2019-05-07 12:05 | OP ---
DATE OF OPERATION: 05/07/19 [facility] DATE OF : 52 SURGEON: Allan Trevizo MD SORTING AND FOLDING SUPERVISOR: None. ANESTHESIA: General endotracheal tube. PRE-OP DIAGNOSIS: Postmenopausal bleeding. POST-OP DIAGNOSIS: Postmenopausal bleeding and endometrial polyps. OPERATIVE PROCEDURE: D and C, hysteroscopy, MyoSure. ESTIMATED BLOOD LOSS: Minimal. SPECIMEN: Includes endometrium and polyps. FINDINGS: Include 2 endometrial polyps coming form the posterior fundal area, one frond-like, the other more smooth, and some endometrial scaring at the fundus. DESCRIPTION OF PROCEDURE: The patient was identified, procedure identified as a D and C hysteroscopy. The patient was taken to the operating room, prepped and draped in the usual fashion in dorsal lithotomy position under general anesthesia. Two single tooth tenaculum was placed at the anterior lip of the cervix. Cervix was easily dilated up to a #26 Chas dilator. The hysteroscope was inserted. The above findings were noted. The MyoSure LITE was inserted and the polyps were excised using the MyoSure LITE. A sharp curette was inserted and sharp curettage performed with good scant tissue obtained. Uterus sounded to 8 cm initially. Both tenaculums were removed from the cervix. Good hemostasis was verified and the patient returned to recovery room in stable condition. All sponge and instrument counts were correct. [id number]/[facility] #: [id number] MTDD
== END | disposition home or self-care (01) ==
LOC: OR 08:04
PROVIDERS: ATTEND Obstetrics & Gynecology
PROC: 0UDB8ZX Extraction of Endometrium, Via Natural or Artificial Opening Endoscopic, Diagnostic (ICD-10-PCS; principal; 2019-05-07 10:00)
DX: N95.0 Postmenopausal bleeding (principal); N84.0 Polyp of corpus uteri; K21.9 Gastro-esophageal reflux disease without esophagitis; E78.00 Pure hypercholesterolemia, unspecified; E66.9 Obesity, unspecified; I10 Essential (primary) hypertension; E03.9 Hypothyroidism, unspecified; Z88.1 Allergy status to other antibiotic agents; Z96.652 Presence of left artificial knee joint; Z96.641 Presence of right artificial hip joint; Z68.41 Body mass index [BMI] 40.0-44.9, adult
CPT/HCPCS: 88305; A9270-GY; J1100; J1240; J1885; J2250; J2405; J2704; J3010